=== PATIENT | female | born 1945 | race Caucasian/White ===

== ENCOUNTER 2020-09-25 23:23 | Inpatient (IN) | payer MEDICARE ==
[2020-09-25 23:46] VITALS: BMI 27.3
[2020-09-25] MEDS ORDERED: ACETAMINOPHEN 1000 MG/100 ML VIAL (NON FORMULARY) IVPB ONE (23:48)
[2020-09-25] MEDS ORDERED: SODIUM CHLORIDE 500 ML IV STA (23:51)
[2020-09-26] MEDS ORDERED: ACETAMINOPHEN INJECTION 100 ML IVPB ONE (00:20)
[2020-09-26 00:50] LABS: INR 1.04 (0.83-1.09); PROTHROMBIN TIME (PATIENT) 12.8 SEC (9.7-13.0)
[2020-09-26 00:51] LABS: EOS % 1.2 % (0-4.5); HEMATOCRIT 36.8 % (32.4-45.2); HEMOGLOBIN 12.2 GM/dL (10.7-15.3); LYMPH % 10.4 % (8-40); MCH 28.2 pg (25.7-33.7); MEAN CELL VOLUME 85.6 fl (80-96); NEUT % 86.4 % (42.8-82.8); PLATELET COUNT 68 K/MM3 (134-434); RBC 4.31 M/mm3 (3.60-5.2); RDW 13.4 % (11.6-15.6); WHITE BLOOD COUNT 2.5 K/mm3 (4.0-10.0)
[2020-09-26 00:52] LABS: ACTIVATED PTT 26.7 SECONDS (25.2-36.5)
[2020-09-26 00:54] LABS: CHLORIDE 103 mmol/L (98-107); SODIUM 137 mmol/L (136-145)
[2020-09-26 00:56] LABS: CALCIUM 9.5 mg/dL (8.5-10.1)
[2020-09-26 00:57] LABS: ALBUMIN 3.7 g/dl (3.4-5.0); ANION GAP 9 MMOL/L (8-16); BLOOD UREA NITROGEN 10.5 mg/dL (7-18); CO2 25 mmol/L (21-32); GLUCOSE,RANDOM 319 mg/dL (74-106)
[2020-09-26 01:00] LABS: CREATININE 0.8 mg/dL (0.55-1.3); SGOT/AST 12 U/L (15-37); SGPT/ALT 25 U/L (13-61)
[2020-09-26 01:02] LABS: BILIRUBIN,TOTAL 0.4 mg/dL (0.2-1); TOT PROT 6.9 g/dl (6.4-8.2)
[2020-09-26 01:03] LABS: ALK PHOS 65 U/L (45-117)
[2020-09-26 01:05] LABS: LACTIC ACID 2.6 mmol/L (0.4-2.0)
[2020-09-26] MEDS ORDERED: SODIUM CHLORIDE 500 ML IV STA (01:20)
[2020-09-26] MEDS ORDERED: DEXAMETHASONE SOD PHOSPHATE 10 MG/1 ML VIAL ONE (01:38)
[2020-09-26] MEDS ORDERED: AZITHROMYCIN IVPB 500 MG in DEXTROSE 5%-WATER - 250 ML IVPB ONE (01:39)
[2020-09-26] MEDS ORDERED: DEXAMETHASONE SOD PHOSPHATE 10 MG/1 ML VIAL IVPUSH ONE (01:39)
[2020-09-26] MEDS ORDERED: CEFTRIAXONE 1 GM in DEXTROSE 5%-WATER - 50 ML IVPB ONE (01:39)
[2020-09-26] MEDS ORDERED: ALBUTEROL SO4 2.5/IPRATROPIUM 0.5 INH SOL 3 ML VIAL.NEB. NEB ONE (01:39)
[2020-09-26 01:56] LABS: EPI CELLS 5 /uL (0-25.1); HYALINE CASTS 0 /uL (0-3.1); PH,URINE 5.5 (5.0-8.0); URINE APPEARANCE CLEAR; URINE BACTERIA 1154 /uL (0-1359); URINE BILIRUBIN NEGATIVE (NEGATIVE); URINE COLOR YELLOW; URINE GLUCOSE (UA) 3+ (NEGATIVE); URINE KETONE NEGATIVE (NEGATIVE); URINE LEUK ESTERASE NEGATIVE (NEGATIVE); URINE NITRITE NEGATIVE (NEGATIVE); URINE PROTEIN NEGATIVE (NEGATIVE); URINE RBC 82 /uL (0-23.9); URINE UROBILINOGEN 0.2 mg/dL (0.2-1.0); URINE WBC 28 /uL (0-25.8)
[2020-09-26] MEDS ORDERED: CEFTRIAXONE 1 GM/50 ML BAG ONE (02:03)
[2020-09-26] MEDS ORDERED: AZITHROMYCIN IVPB 500 MG/250 ML BAG IVPB ONE (02:03)
[2020-09-26] MEDS ORDERED: SODIUM CHLORIDE 0.9% 500 ML INFUS.BAG IV ONE (02:05)
[2020-09-26] MEDS ORDERED: SODIUM CHLORIDE 1,000 ML IV SCH (08:15)
[2020-09-26 08:37] LABS: LACTIC ACID 2.6 mmol/L (0.4-2.0)
[2020-09-26] MEDS ORDERED: ENOXAPARIN NA (PORCINE) 30 MG/0.3 ML DISP.SYRIN SQ SCH (10:00)
[2020-09-26] MEDS: ENOXAPARIN NA (PORCINE) 40 MG/0.4 ML DISP.SYRIN SQ SCH (10:27)
[2020-09-26 12:02] LABS: BLOOD UREA NITROGEN 9.2 mg/dL (7-18)
[2020-09-26] MEDS: methylPREDNISolone NA SUCC 40 MG/1 ML VIAL IVPUSH SCH ×2 (12:02→17:29)
[2020-09-26 12:06] LABS: CREATININE 0.8 mg/dL (0.55-1.3)
[2020-09-26] MEDS: ALBUTEROL SO4 2.5/IPRATROPIUM 0.5 INH SOL 3 ML VIAL.NEB. NEB SCH ×3 (12:34→19:58)
[2020-09-26] MEDS ORDERED: DEXTROSE 5%-WATER - 50 ML IVPB ONE ×2 (13:55→16:15)
[2020-09-26] MEDS ORDERED: PIPERACILLIN/TAZOBACTAM 3.375 GM VIAL IVPB ONE ×2 (13:55→16:15)
[2020-09-26] MEDS: PIPERACILLIN/TAZOB 3.375 GM 3.375 GM in DEXTROSE 5%-WATER - 50 ML IVPB SCH ×2 (14:53→17:29)
[2020-09-26] MEDS: BUDESONIDE/FORMETEROL FUMARATE 160/4.5 mcg INHALER IH SCH ×2 (14:55→21:37)
[2020-09-26] MEDS: SODIUM CHLORIDE 1,000 ML IV SCH ×2 (15:15→22:43)
[2020-09-27] MEDS ORDERED: DEXTROSE 5%-WATER - 50 ML IVPB ONE ×3 (00:27→18:06)
[2020-09-27] MEDS ORDERED: PIPERACILLIN/TAZOBACTAM 3.375 GM VIAL IVPB ONE ×3 (00:27→18:06)
[2020-09-27] MEDS: methylPREDNISolone NA SUCC 40 MG/1 ML VIAL IVPUSH SCH ×3 (01:45→18:12)
[2020-09-27] MEDS: PIPERACILLIN/TAZOB 3.375 GM 3.375 GM in DEXTROSE 5%-WATER - 50 ML IVPB SCH ×3 (01:45→18:12)
[2020-09-27] MEDS: INSULIN SLIDING SCALE (NOVOLOG) 1 VIAL SQ SCH ×5 (02:27→21:12)
[2020-09-27 07:17] LABS: BASO % 0.1 % (0-2.0); HEMATOCRIT 32.8 % (32.4-45.2); HEMOGLOBIN 10.8 GM/dL (10.7-15.3); LYMPH % 9.8 % (8-40); MEAN CELL VOLUME 84.6 fl (80-96); MEAN PLT VOLUME 12.2 fl (7.5-11.1); MONO % 4.7 % (3.8-10.2); NEUT % 85.4 % (42.8-82.8); PLATELET COUNT 71 10^3/uL (134-434); RBC 3.87 M/mm3 (3.60-5.2); RDW 13.5 % (11.6-15.6); WHITE BLOOD COUNT 9.3 K/mm3 (4.0-10.0)
[2020-09-27 07:35] LABS: CALCIUM 9.3 mg/dL (8.5-10.1)
[2020-09-27 07:36] LABS: ALBUMIN 3.1 g/dl (3.4-5.0); BLOOD UREA NITROGEN 14.6 mg/dL (7-18)
[2020-09-27 07:39] LABS: CREATININE 0.8 mg/dL (0.55-1.3)
[2020-09-27 07:40] LABS: BILIRUBIN,TOTAL 0.3 mg/dL (0.2-1)
[2020-09-27 07:41] LABS: TOT PROT 6.5 g/dl (6.4-8.2)
[2020-09-27] MEDS: ALBUTEROL SO4 2.5/IPRATROPIUM 0.5 INH SOL 3 ML VIAL.NEB. NEB SCH ×4 (09:00→20:45)
[2020-09-27] MEDS: BUDESONIDE/FORMETEROL FUMARATE 160/4.5 mcg INHALER IH SCH ×2 (11:55→21:15)
[2020-09-27] MEDS: SODIUM CHLORIDE 1,000 ML IV SCH ×2 (13:30→23:33)
[2020-09-27] MEDS: guaiFENesin/D-M SUGAR-FREE/ACLHOL-FREE 118 ML BOTTLE PO PRN (17:10)
[2020-09-27] MEDS: ENOXAPARIN NA (PORCINE) 40 MG/0.4 ML DISP.SYRIN SQ SCH (18:12)
[2020-09-28] MEDS ORDERED: Insulin (LOG) Aspart 100 UNITS/ML VIAL SQ ONE (01:15)
[2020-09-28] MEDS ORDERED: PIPERACILLIN/TAZOBACTAM 3.375 GM VIAL IVPB ONE ×3 (01:47→17:47)
[2020-09-28] MEDS ORDERED: DEXTROSE 5%-WATER - 50 ML IVPB ONE ×3 (01:47→17:47)
[2020-09-28] MEDS: methylPREDNISolone NA SUCC 40 MG/1 ML VIAL IVPUSH SCH (02:16)
[2020-09-28] MEDS: PIPERACILLIN/TAZOB 3.375 GM 3.375 GM in DEXTROSE 5%-WATER - 50 ML IVPB SCH ×3 (02:16→17:52)
[2020-09-28] MEDS: INSULIN SLIDING SCALE (NOVOLOG) 1 VIAL SQ SCH ×4 (06:04→21:30)
[2020-09-28] MEDS: ALBUTEROL SO4 2.5/IPRATROPIUM 0.5 INH SOL 3 ML VIAL.NEB. NEB SCH ×4 (07:47→20:45)
[2020-09-28] MEDS: BUDESONIDE/FORMETEROL FUMARATE 160/4.5 mcg INHALER IH SCH ×2 (11:37→21:29)
[2020-09-28] MEDS: ENOXAPARIN NA (PORCINE) 40 MG/0.4 ML DISP.SYRIN SQ SCH (11:37)
[2020-09-28] MEDS: SODIUM CHLORIDE 1,000 ML IV SCH (14:42)
[2020-09-28] MEDS: guaiFENesin/D-M SUGAR-FREE/ACLHOL-FREE 118 ML BOTTLE PO PRN (18:18)
[2020-09-28] MEDS: MELATONIN 1 MG TABLET PO SCH (21:40)
[2020-09-29] MEDS ORDERED: DEXTROSE 5%-WATER - 50 ML IVPB ONE ×3 (01:29→16:38)
[2020-09-29] MEDS ORDERED: PIPERACILLIN/TAZOBACTAM 3.375 GM VIAL IVPB ONE ×3 (01:29→16:38)
[2020-09-29] MEDS: PIPERACILLIN/TAZOB 3.375 GM 3.375 GM in DEXTROSE 5%-WATER - 50 ML IVPB SCH ×3 (01:41→17:00)
[2020-09-29] MEDS: INSULIN SLIDING SCALE (NOVOLOG) 1 VIAL SQ SCH ×4 (06:03→21:18)
[2020-09-29] MEDS: guaiFENesin/D-M SUGAR-FREE/ACLHOL-FREE 118 ML BOTTLE PO PRN ×2 (06:40→17:02)
[2020-09-29] MEDS: ALBUTEROL SO4 2.5/IPRATROPIUM 0.5 INH SOL 3 ML VIAL.NEB. NEB SCH ×4 (07:35→20:30)
[2020-09-29 07:43] LABS: HEMATOCRIT 32.9 % (32.4-45.2); MCHC 33.3 g/dl (32.0-36.0); MEAN PLT VOLUME 11.1 fl (7.5-11.1); PLATELET COUNT 67 10^3/uL (134-434); RBC 3.92 M/mm3 (3.60-5.2); RDW 13.9 % (11.6-15.6); WHITE BLOOD COUNT 5.7 K/mm3 (4.0-10.0)
[2020-09-29 07:54] LABS: BLOOD UREA NITROGEN 14.9 mg/dL (7-18); CALCIUM 8.4 mg/dL (8.5-10.1)
[2020-09-29 07:55] LABS: ALBUMIN 2.8 g/dl (3.4-5.0)
[2020-09-29 07:58] LABS: CREATININE 0.7 mg/dL (0.55-1.3)
[2020-09-29 07:59] LABS: BILIRUBIN,TOTAL 0.3 mg/dL (0.2-1)
[2020-09-29] MEDS: ENOXAPARIN NA (PORCINE) 40 MG/0.4 ML DISP.SYRIN SQ SCH (09:38)
[2020-09-29] MEDS: BUDESONIDE/FORMETEROL FUMARATE 160/4.5 mcg INHALER IH SCH ×2 (09:38→21:20)
[2020-09-29] MEDS ORDERED: INSULIN (NOVOLOG) ASPART 100 UNITS/ML 10ML VIAL ONE (10:56)
[2020-09-29] MEDS: SODIUM CHLORIDE 1,000 ML IV SCH (17:03)
[2020-09-29] MEDS: MELATONIN 1 MG TABLET PO SCH (21:19)
[2020-09-30] MEDS ORDERED: DEXTROSE 5%-WATER - 50 ML IVPB ONE ×2 (02:42→08:47)
[2020-09-30] MEDS ORDERED: PIPERACILLIN/TAZOBACTAM 3.375 GM VIAL IVPB ONE ×2 (02:42→08:47)
[2020-09-30] MEDS: PIPERACILLIN/TAZOB 3.375 GM 3.375 GM in DEXTROSE 5%-WATER - 50 ML IVPB SCH ×2 (02:55→09:22)
[2020-09-30] MEDS: INSULIN SLIDING SCALE (NOVOLOG) 1 VIAL SQ SCH ×2 (06:02→11:17)
[2020-09-30 06:45] VITALS: BP 141/79; PULSE 95; TEMP 98.4
[2020-09-30] MEDS: ALBUTEROL SO4 2.5/IPRATROPIUM 0.5 INH SOL 3 ML VIAL.NEB. NEB SCH ×2 (07:42→11:35)
[2020-09-30] MEDS: BUDESONIDE/FORMETEROL FUMARATE 160/4.5 mcg INHALER IH SCH (09:22)
[2020-09-30] MEDS: ENOXAPARIN NA (PORCINE) 40 MG/0.4 ML DISP.SYRIN SQ SCH (09:23)
== END 2020-09-30 12:00 | disposition home or self-care (01) | DRG 872 ==
LOC: JER 23:23 → JERBED 09-26 02:15 → J7W 09-26 07:57
PROVIDERS: ADMIT Hospitalist; ATTEND Family Medicine
DX: A41.51 Sepsis due to Escherichia coli [E. coli] (principal); J44.1 Chronic obstructive pulmonary disease with (acute) exacerbation; E87.2 Acidosis; N39.0 Urinary tract infection, site not specified; D68.9 Coagulation defect, unspecified; I10 Essential (primary) hypertension; E78.5 Hyperlipidemia, unspecified; D69.6 Thrombocytopenia, unspecified; E11.65 Type 2 diabetes mellitus with hyperglycemia
CPT/HCPCS: 36415; 71045-TC-FY; 76775-TC; 76856-TC; 80048; 80053; 81003; 82550; 82553; 82962; 83605; 84484; 85025; 85027; 85610; 85730; 87040; 87086; 87186; 87804; 93005; 93010; 94640; 97116-GP; 97161-GP; 99285-25; C9803; J0131; J1100; U0003; U0005